=== PATIENT | male | born 1985 | race Caucasian/White ===

== ENCOUNTER 2021-11-12 14:46 | Emergency (ER) | payer OTHER ==
[2021-11-12 17:20] LABS: RED BLOOD COUNT 4.85 M/UL (4.20-5.50); WHITE BLOOD COUNT 14.9 K/UL (4.5-11.0)
[2021-11-12 17:51] LABS: BUN/CREATININE RATIO 16 (0-10)
== END 2021-11-13 09:29 | disposition other institution (70) ==
LOC: ER1 14:46
PROVIDERS: Physician Assistant; Physician Assistant Medical
DX: A41.9 Sepsis, unspecified organism (principal); M86.9 Osteomyelitis, unspecified; E87.1 Hypo-osmolality and hyponatremia; M46.47 Discitis, unspecified, lumbosacral region; F17.210 Nicotine dependence, cigarettes, uncomplicated
CPT/HCPCS: 71045; 72129; 72132; 80053; 80307; 81001; 82550; 82553; 83605; 84484; 85025; 85652; 86140; 87040; 87077; 87086; 87186; 96374; 96375; 96376; 99285; J0692; J1885; J2405; J3370; J7030; Q9967